=== PATIENT | male | born 1965 | race Caucasian/White ===

== ENCOUNTER 2020-09-30 10:23 | Outpatient (REF) | payer OTHER, SELFPAY ==
--- NOTE | 2020-09-30 10:28 | US_ITS ---
EXAMINATION: US RETROPERITONEAL LIMITED (RENAL ONLY) CLINICAL INFORMATION: Nephrolithiasis. COMPARISON: Previous renal ultrasound most recent September [address] of the abdomen and pelvis February 2018 TECHNIQUE: Grayscale and color imaging of the kidneys FINDINGS: RIGHT KIDNEY: 12 x 4.3 x 5.6 cm (SAG x AP x TRV). The kidney is normal in size, contour, and echogenicity. Renal cortical thickness is normal. There is a echogenic density with twinkle artifact measuring 2 mm in the mid pole again questionable for a stone. No renal mass or hydronephrosis. LEFT KIDNEY: 10.8 x 5.4 x 3.9 cm (SAG x AP x TRV). The kidney is normal in size, contour, and echogenicity. Renal cortical thickness is normal. No calculi or focal parenchymal lesions. No hydronephrosis. US/US renal BI IMPRESSION: Question small right renal stone.
== END 2020-09-30 10:24 | disposition home or self-care (01) ==
LOC: HO.HMGCX 10:23
PROVIDERS: Visit Provider Urology
DX: N20.0 Calculus of kidney (principal)
CPT/HCPCS: 76775

== ENCOUNTER → 2020-12-02 15:01 | Outpatient (BNVA) | payer OTHER, SELFPAY | PROVIDERS: PCP Internal Medicine; Visit Provider Urology ==

== ENCOUNTER 2024-10-07 15:20 | Outpatient (REF) | payer OTHER, SELFPAY | END 2024-10-07 15:21 | disposition home or self-care (01) | LOC: HO.US 15:20 | PROVIDERS: PCP Internal Medicine; Visit Provider Internal Medicine | DX: N20.0 Calculus of kidney (principal) | CPT/HCPCS: 76775 ==

== ENCOUNTER 2024-11-18 10:17 | Outpatient (AMB) | payer OTHER, SELFPAY ==
--- NOTE | 2024-11-18 10:20 | MHC.OFFVIS ---
Intake Visit Reasons: HX of Kidney Stones/US(Pending) Intake Note: Patient is present for HX OF KIDNEY STONES/US Urology Medication: Antibiotic Allergy:NONE Blood Thinner: Wet Process Miller Head Required: No Allergies No Known Allergies [No Known Allergies*] Allergy (Verified 11/18/24 10:21) HPI Comments Details: Cristian MARTINEZ is a very pleasant male. He is a patient of Dr Hansen. He is seen in the office today for following urologic conditions - nephrolithiasis - phimosis No stone seen on recent ultrasound Has episode of phimosis. Secondary to poison stephanie transfer from and onto penile foreskin. At the time was extremely on comfortable for patient. Prescribed steroid cream Applied 2 times per day thin coat Review six-month Nephrolithiasis/Urolithiasis: Reviewed ultrasound today No evidence of stones Continue with vitamin B6 Refill provided Can review in 12 months They are here for further evaluation of nephrolithiasis. They present for evaluation of back pain none flank pain none abdominal pain none Associated symptoms include Fever No Nausea No Chills No Hematuria No Urolithiasis was diagnosed 02/26 stone at [facility] with right flank pain. Imaging with 5mm stone. This past yesterday. He has stone in bag. 1st episode. No family history.. The patient previously had kidney stones whose composition w 02/26 , calcium oxalate - monohydrate 80%. Laboratory investigations include 02/26 , Normocalcemia (9.0), Normal PTH, Normal uric acid. 24 Hour urine evaluation 02/26 , Good Volume > 2.00 L, Low calcium < 200, High Citrate, Low Oxalate < 30. Prior treatment(s) include observation. Prior imaging includes 02/26 , a CT (computed tomography) scan of the abdomen/pelvis (stone protocol), showing ureteral stone(s), on the right, 2-5 mm, hydronephrosis mild in severity 03/28 , a renal ultrasound, showing no evidence of stones 09/29 , a renal ultrasound, 2mm right - 10/30 renal ultrasound no stones Current therapeutic plan will be to continue with imaging surveillance, To organize evaluation with appropriate imaging and laboratory investigations, General advice to maintain good fluid intake for urine greater than 1.5 L per day, reduce salt and reduce protein and acid loads was provided Review of Systems Const Denies chills and Denies fever(s) Card Reports no additional complaints and Denies syncope Resp Denies cough GI Denies abdominal pain and Denies heartburn Reports as per HPI and Denies change in libido Neuro Denies syncope Psych Denies change in libido Endo Denies change in libido Physical Exam Const General: cooperative, healthy appearing, comfortable and no acute distress Orientation/consciousness: patient oriented x3 HEENT Face and sinus: Yes normal facial exam Mouth: moist mucous membranes Neck Neck: Yes normal visual inspection, Yes full ROM and Yes trachea midline Chest Chest palpation & inspection: normal inspection of the chest Resp Effort & Inspection: normal respiratory effort, able to speak in complete sentences and no respiratory distress GI Inspection: Yes normal to inspection Back/Spine/Pelvis Cervical Spine: normal cervical lordosis Thoracic/Lumbar Spine: thoracic and lumbar spine normal to inspection Skin General skin exam: no rashes or lesions noted Neuro General: patient oriented x3, gait normal, tone normal and moves all extremities Extrem General: Yes normal to inspection and Yes capillary refill normal Results AMB Urinalysis, Automated UA Leukoctes 0 Raphael/uL Last Edit by KASEY Kaur on 11/18/24 10:32 UA Nitrite Negative Last Edit by KASEY Kaur on 11/18/24 10:32 UA Urobilinogen 0.2 mg/dL Last Edit by KASEY Kaur on 11/18/24 10:32 UA Protein 0 mg/dL Last Edit by KASEY Kaur on 11/18/24 10:32 UA pH 6.5 Last Edit by KASEY Kaur on 11/18/24 10:32 UA Blood 0 Mauro/uL Last Edit by KASEY Kaur on 11/18/24 10:32 UA Specific [place] 1.010 Last Edit by KASEY Kaur on 11/18/24 10:32 UA Ketone Negative Last Edit by KASEY Kaur on 11/18/24 10:32 UA Bilirubin 0 mg/dL Last Edit by KASEY Kaur on 11/18/24 10:32 UA Glucose 0 mg/dL Last Edit by KASEY Kaur on 11/18/24 10:32 Results Reviewed Results Reviewed: Laboratory Last Values Urine pH (Auto) 6.5 11/18/24 10:31 Specific [place] (Auto) 1.010 11/18/24 10:31 Urine Protein (Auto) 0 mg/dL 11/18/24 10:31 Glucose (UA)(Auto) 0 mg/dL 11/18/24 10:31 Urine Ketones (Auto) Negative 11/18/24 10:31 Urine Blood (Auto) 0 Mauro/uL 11/18/24 10:31 Urine Nitrite (Auto) Negative 11/18/24 10:31 Urine Bilirubin (Auto) 0 mg/dL 11/18/24 10:31 Urine Urobilinogen (Auto) 0.2 mg/dL 11/18/24 10:31 Leukocyte Esterase (Auto) 0 Raphael/uL 11/18/24 10:31 Assessment & Plan Assessment & Plan (1) Phimosis: Code(s): N47.1 - Phimosis Category: Medical (2) Nephrolithiasis: Code(s): N20.0 - Calculus of kidney Category: Medical Plan Six-month follow-up Orders: Orders AMB Urinalysis Automated Today Z13.9 - Encounter for screening, unspecified Medications: New clotrimazole-betamethasone 1-0.05 % Apply thin coat 2 times per day 1 appl topical BID 4 weeks 45 grams 0RF N47.1 - Phimosis, N48.1 - Balanitis Patient Instructions: Imaging studies, laboratory and physical exam results were discussed and reviewed in detail. No major barriers to patient understanding were identified. An opportunity to ask questions regarding the treatment plan was provided. All questions were answered. The patient expressed understanding and agreement with the above treatment plan. The patient is aware they should contact our office by phone for worsening of their current condition or the appearance of new urologic symptoms. Compliance is encouraged with any medications and followup testing that is ordered. It is a privilege to participate in the urologic care of your patient. If you have any questions or concerns regarding treatment for the above conditions, or other urologic issues, please do not hesitate to contact me. The office telephone contact is [phone]. This note is constructed using voice recognition software. While every effort has been made to ensure accuracy equipment specialist errors may have been included. Yours sincerely, Dr Td Wisdom MD, [facility] - Urology Providers of Expert, Compassionate Care for the Genitourinary System Coding Level of Care Code Est Pt Level 4 (05723) Diagnoses Phimosis N47.1 Nephrolithiasis N20.0
== END 2024-11-18 10:49 | disposition home or self-care (01) ==
PROVIDERS: PCP Internal Medicine; Visit Provider Urology
DX: N47.1 Phimosis (principal); N20.0 Calculus of kidney; Z13.9 Encounter for screening, unspecified
CPT/HCPCS: 99214

== ENCOUNTER → 2024-11-18 10:17 | Outpatient (BNVA) | payer OTHER, SELFPAY | PROVIDERS: PCP Internal Medicine; Visit Provider Urology | DX: N47.1 Phimosis (principal); N48.1 Balanitis; N20.0 Calculus of kidney | CPT/HCPCS: 81003 ==

== ENCOUNTER 2025-05-25 08:38 | Outpatient (AMB) | payer OTHER, SELFPAY ==
--- NOTE | 2025-05-25 08:41 | A.OFFVIS_ITS ---
Intake Visit Reasons: 6m follow up Intake Note: Patient is present for 6 mo follow up for KIDNEY STONES phimosis Urology Medication:none Antibiotic Allergy:NONE Blood Thinner:none Lean Engineer Required: No Accompanied by: Self / Same As Patient Allergies No Known Allergies (No Known Allergies*) Allergy (Verified 05/25/25 08:42) HPI Comments Details: Cristian MARTINEZ is a very pleasant male. He is a patient of Dr Hansen. He is seen in the office today for following urologic conditions - nephrolithiasis - phimosis Resolution of phimosis from poison stephanie Area of balanitis on glans Recommend thin coat steroid cream twice a day for 2 weeks Six-month follow-up with renal ultrasound Nephrolithiasis/Urolithiasis: Reviewed ultrasound today No evidence of stones Continue with vitamin B6 Urolithiasis was diagnosed 02/26 [place] [facility] flank pain. Imaging with 5mm stone. This past yesterday. He has stone in bag. 1st episode. No family history.. The patient previously had kidney stones whose composition w 02/26 , calcium oxalate - monohydrate 80%. Laboratory investigations include 02/26 , Normocalcemia (9.0), Normal PTH, Normal uric acid. 24 Hour urine evaluation 02/26 , Good Volume > 2.00 L, Low calcium < 200, High Citrate, Low Oxalate < 30. Prior treatment(s) include observation. Prior imaging includes 02/26 , a CT (computed tomography) scan of the abdomen/pelvis (stone protocol), showing ureteral stone(s), on the right, 2-5 mm, hydronephrosis mild in severity 03/28 , a renal ultrasound, showing no evidence of stones 09/29 , a renal ultrasound, 2mm right - 10/30 renal ultrasound no stones Current therapeutic plan will be to continue with imaging surveillance, To organize evaluation with appropriate imaging and laboratory investigations, General advice to maintain good fluid intake for urine greater than 1.5 L per day, reduce salt and reduce protein and acid loads was provided Review of Systems Const Denies chills and Denies fever(s) Card Reports no additional complaints and Denies syncope Resp Denies cough GI Denies abdominal pain and Denies heartburn Reports as per HPI and Denies change in libido Neuro Denies syncope Psych Denies change in libido Endo Denies change in libido Physical Exam Const General: cooperative, healthy appearing, comfortable and no acute distress Orientation/consciousness: patient oriented x3 HEENT Face and sinus: Yes normal facial exam Mouth: moist mucous membranes Neck Neck: Yes normal visual inspection, Yes full ROM and Yes trachea midline Chest Chest palpation & inspection: normal inspection of the chest Resp Effort & Inspection: normal respiratory effort, able to speak in complete sentences and no respiratory distress GI Inspection: Yes normal to inspection Back/Spine/Pelvis Cervical Spine: normal cervical lordosis Thoracic/Lumbar Spine: thoracic and lumbar spine normal to inspection Skin General skin exam: no rashes or lesions noted Neuro General: patient oriented x3, gait normal, tone normal and moves all extremities Extrem General: Yes normal to inspection and Yes capillary refill normal Assessment & Plan Assessment & Plan (1) Nephrolithiasis: Code(s): N20.0 - Calculus of kidney Category: Medical (2) Balanitis: Code(s): N48.1 - Balanitis Category: Medical Plan Six-month follow-up renal ultrasound Patient Instructions: This note is constructed using voice recognition software. While every effort has been made to ensure accuracy synthetic resin operator errors may have been included. Imaging studies, laboratory and physical exam results were discussed and reviewed in detail. No major barriers to patient understanding were identified. An opportunity to ask questions regarding the treatment plan was provided. All questions were answered. The patient expressed understanding and agreement with the above treatment plan. The patient is aware they should contact our office by phone for worsening of their current condition or the appearance of new urologic symptoms. Compliance is encouraged with any medications and followup testing that is ordered. It is a privilege to participate in the urologic care of your patient. If you have any questions or concerns regarding treatment for the above conditions, or other urologic issues, please do not hesitate to contact me. The office telephone contact is [phone]. Sincerely, Dr Td Wisdom MD, [facility] - Urology Compassionate Specialist Care for the Genitourinary System Coding Level of Care Code Est Pt Level 3 (52632) Diagnoses Nephrolithiasis N20.0 Balanitis N48.1
== END 2025-05-25 09:00 | disposition home or self-care (01) ==
LOC: HO.HUSH 08:38
PROVIDERS: PCP Internal Medicine; Visit Provider Urology
DX: N20.0 Calculus of kidney (principal); N48.1 Balanitis; Z13.9 Encounter for screening, unspecified
CPT/HCPCS: 99213

== ENCOUNTER → 2025-05-25 08:38 | Outpatient (BNVA) | payer OTHER, SELFPAY | PROVIDERS: PCP Internal Medicine; Visit Provider Urology | DX: N20.0 Calculus of kidney (principal) | CPT/HCPCS: 81003 ==

== ENCOUNTER 2025-10-29 13:47 | Outpatient (REF) | payer OTHER, SELFPAY ==
--- NOTE | ~2025-10-29 | US_ITS ---
EXAMINATION: US RETROPERITONEAL LIMITED (RENAL ONLY) CLINICAL INFORMATION: Calculus of kidney. COMPARISON: 10/07/2024. TECHNIQUE: Real-time imaging of the kidneys. FINDINGS: RIGHT KIDNEY: 10.7 x 4.8 x 6.5 cm (SAG x AP x TRV). The kidney is normal in size, contour, and echogenicity. Renal cortical thickness is normal. No calculi or focal parenchymal lesions. No hydronephrosis. LEFT KIDNEY: 10.7 x 6.4 x 6.6 cm (SAG x AP x TRV). The kidney is normal in size, contour, and echogenicity. Renal cortical thickness is normal. No calculi or focal parenchymal lesions. No hydronephrosis. US/US renal BI IMPRESSION: Normal renal ultrasound. Electronically signed by: Miles Early MD 10/29/2025 02:20 PM [facility]
== END 2025-10-29 13:48 | disposition home or self-care (01) ==
LOC: HO.HMGCX 13:47
PROVIDERS: PCP Internal Medicine; Visit Provider Urology
DX: N20.0 Calculus of kidney (principal)
CPT/HCPCS: 76775

== ENCOUNTER → 2025-10-29 13:49 | Outpatient (BNV) | payer OTHER, SELFPAY | PROVIDERS: PCP Internal Medicine; Visit Provider Radiology Diagnostic Radiology | DX: N20.0 Calculus of kidney (principal) | CPT/HCPCS: 76775 ==